=== PATIENT | female | born 1970 | race Native Hawaiian/Other Pacific Islander ===

== ENCOUNTER 2018-02-23 13:34 | Outpatient (CLI) | payer OTHER | END 2018-02-23 19:51 | disposition home or self-care (01) | LOC: LAB 13:34 | DX: N39.0 Urinary tract infection, site not specified (principal) | CPT/HCPCS: 81000; 87077; 87086; 87088; 87186 ==

== ENCOUNTER 2018-03-04 12:53 | Outpatient (CLI) | payer OTHER | END 2018-03-04 20:20 | disposition home or self-care (01) | LOC: LAB 12:53 | DX: R30.0 Dysuria (principal) | CPT/HCPCS: 81000; 87086; 87088 ==

== ENCOUNTER 2018-03-09 14:41 | Outpatient (CLI) | payer OTHER | END 2018-03-09 20:37 | disposition home or self-care (01) | LOC: LAB 14:41 | DX: N39.0 Urinary tract infection, site not specified (principal); R30.0 Dysuria | CPT/HCPCS: 81000 ==

== ENCOUNTER 2021-03-21 11:36 | Outpatient (CLI) | payer OTHER | END 2021-03-21 20:21 | disposition home or self-care (01) | LOC: RAD 11:36 | PROVIDERS: ATTEND Nurse Practitioner Family | DX: M79.671 Pain in right foot (principal) ==

== ENCOUNTER 2021-10-22 15:36 | Outpatient (CLI) | payer OTHER | END 2021-10-22 18:52 | disposition home or self-care (01) | LOC: LABW 15:36 | PROVIDERS: ATTEND Nurse Practitioner Family | DX: I26.99 Other pulmonary embolism without acute cor pulmonale (principal); Z01.812 Encounter for preprocedural laboratory examination | CPT/HCPCS: 36415; 82565; 84520; Q9963 ==